=== PATIENT | male | born 1965 | race Caucasian/White ===

== ENCOUNTER 2017-03-31 06:06 | Day surgery (SDC) | payer OTHER ==
[2017-03-31] VITALS (13 sets, daily range): BP systolic 91–143; BP diastolic 52–88; PULSE 60–70; RESP 14–20
[~2017-03-31] VITALS: Ht 165.1 cm; Wt 90.9 kg
[2017-03-31] MEDS ORDERED: FURO40TA4 PO (06:30)
[2017-03-31] MEDS ORDERED: NIFE30TA60 PO (06:30)
[2017-03-31] MEDS ORDERED: METF850T PO (06:30)
[2017-03-31] MEDS ORDERED: LOSA1TAB20 PO (06:30)
[2017-03-31] MEDS ORDERED: PENT400T2 PO (06:30)
[2017-03-31] MEDS ORDERED: NOVO3I SC (06:30)
[2017-03-31] MEDS ORDERED: GABA300C16 PO (06:30)
[2017-03-31] MEDS ORDERED: INSU100I33 SC (06:30)
[2017-03-31] MEDS ORDERED: TRAM50TA2 PO (06:30)
[2017-03-31] MEDS ORDERED: POLYMYXIN/BACITRACIN 1L IRRIG ONE (06:56)
[2017-03-31] MEDS ORDERED: MEPERIDINE 100 MG INJ ONE (07:42)
[2017-03-31] MEDS ORDERED: PROPOFOL 20 ML ONE (07:42)
[2017-03-31] MEDS ORDERED: LIDOCAINE 2% (SDV) 5 ML INJ ONE (07:42)
[2017-03-31] MEDS ORDERED: FENTAnyl 50 MCG/ML VIAL IV PRN ×3 (08:00)
[2017-03-31] MEDS ORDERED: ONDANSETRON 4 MG INJ IV PRN (08:00)
[2017-03-31] MEDS ORDERED: HYDROmorphONE (0.2 MG/ML) 10ML SYG IV PRN ×3 (08:00)
[2017-03-31] MEDS ORDERED: MEPERIDINE 25 MG INJ IV PRN (08:00)
[2017-03-31] MEDS ORDERED: DIPHENHYDRAMINE 50 MG INJ IV PRN (08:00)
[2017-03-31] MEDS ORDERED: LABETALOL HCL 20MG INJ IV PRN (08:00)
[2017-03-31] MEDS ORDERED: OXYCODONE/ACETAMINOPHEN (5/325) TAB PO PRN ×2 (08:00)
[2017-03-31] MEDS ORDERED: hydrALAzine 20 MG INJ IV PRN (08:00)
[2017-03-31] MEDS ORDERED: MIDAZOLAM 1 MG/ML 2 ML INJ IV PRN (08:00)
[2017-03-31] MEDS ORDERED: EPHEDrine SULFATE 50 MG/5 ML SYG IV PRN (08:00)
[2017-03-31] MEDS ORDERED: METOCLOPRAMIDE 10 MG INJ IV PRN (08:00)
[2017-03-31] MEDS ORDERED: BUPIVACAINE 0.5% (SDV) 30 ML INJ ONE (08:14)
--- NOTE | 2017-03-31 08:15 | HPN ---
Date/Time of Note Date/Time of Note DATE: 03/31/17 TIME: 08:13 Interval H&P Admission Note Pt. seen H&P reviewed: No system changes LUIS ARMANDO LIVINGSTON DPM Mar 31, 2017 08:15
[2017-03-31] MEDS ORDERED: CEFAZOLIN 1 GM INJ ONE (08:51)
--- NOTE | 2017-03-31 09:49 | OPPN ---
Date/Time of Note Date/Time of Note DATE: 03/31/17 TIME: 09:47 Operative Report Preoperative Diagnosis Open chronic wound of the left ankle Charcot left ankle Diabetes mellitus with peripheral neuropathy Morbid obesity Postoperative Diagnosis Open chronic wound of the left ankle Charcot left ankle Diabetes mellitus with peripheral neuropathy Morbid obesity Operation/Procedure Performed Surgical debridement of chronic open wound of the left ankle Bone culture x 3 left ankle Surgeon see signature line histology assistant none Anesthesia: general Estimated blood loss: minimal Transfusion Required none Specimen Bone culture x 3 and bone specimen from the left ankle Grafts/Implants none Complications none LUIS ARMANDO LIVINGSTON DPM Mar 31, 2017 09:49
--- NOTE | 2017-03-31 09:49 | OPPN ---
Date/Time of Note Date/Time of Note DATE: 03/31/17 TIME: 09:47 Operative Report Preoperative Diagnosis Open chronic wound of the left ankle Charcot left ankle Diabetes mellitus with peripheral neuropathy Morbid obesity Postoperative Diagnosis Open chronic wound of the left ankle Charcot left ankle Diabetes mellitus with peripheral neuropathy Morbid obesity Operation/Procedure Performed Surgical debridement of chronic open wound of the left ankle Bone culture x 3 left ankle Surgeon see signature line physician assistant surgery none Anesthesia: general Estimated blood loss: minimal Transfusion Required none Specimen Bone culture x 3 and bone specimen from the left ankle Grafts/Implants none Complications none LUIS ARMANDO LIVINGSTON DPM Mar 31, 2017 09:49
--- NOTE | 2017-03-31 09:49 | OPPN ---
Date/Time of Note Date/Time of Note DATE: 03/31/17 TIME: 09:47 Operative Report Preoperative Diagnosis Open chronic wound of the left ankle Charcot left ankle Diabetes mellitus with peripheral neuropathy Morbid obesity Postoperative Diagnosis Open chronic wound of the left ankle Charcot left ankle Diabetes mellitus with peripheral neuropathy Morbid obesity Operation/Procedure Performed Surgical debridement of chronic open wound of the left ankle Bone culture x 3 left ankle Surgeon see signature line fitness assistant none Anesthesia: general Estimated blood loss: minimal Transfusion Required none Specimen Bone culture x 3 and bone specimen from the left ankle Grafts/Implants none Complications none LUIS ARMANDO LIVINGSTON DPM Mar 31, 2017 09:49
--- NOTE | 2017-03-31 09:59 | OPR ---
Date/Time of Note Date/Time of Note DATE: 03/31/17 TIME: 09:52 Operative Report Procedure Date: Mar 31, 2017 Preoperative Diagnosis Chronic open wound of the left ankle Chronic Charcot left ankle Diabetes mellitus with peripheral neuropathy Morbid obesity Postoperative Diagnosis Chronic open wound of the left ankle Chronic Charcot left ankle Diabetes mellitus with peripheral neuropathy Morbid obesity Operation/Procedure Performed Excisional sharp debridement of open wound of the left ankle measuring 4 x 4 centimeters using sharp instrumentation to bone Bone biopsy of the left distal fibula Bone biopsy of the left talus Bone biopsy of the left calcaneus Surgeon see signature line Certified Medication Aide None Anesthesia Type: general Estimated Blood Loss: minimal Transfusion none Specimen Necrotic bone from the left ankle Bone biopsy 3 from the left ankle Grafts/Implants none Tubes/Drains None Complications none Pt Condition Post Procedure: stable Disposition: PACU Indications This is a 52-year-old male who has been suffering with chronic open wound of the left ankle and complete subluxation of the ankle joint along with Charcot deformity for the past 1 year. Risks and complications discussed included, but are not limited to, postoperative infection, postoperative pain, hardware failure, failure of surgery to correct the problem, need for additional surgical procedures, deep venous thrombosis, limb loss and loss of life. Patient understands the discussion and agrees to the procedure. An informed consent was signed, obtained and placed in the chart. No guarantees or warrantees was given or implied as to the outcome of the procedure, either and verbal or written form. Procedure Description The patient was seen in the preoperative area. The proposed surgery was discussed with patient in great detail. Risks and complications of this type of surgery was discussed with patient in great detail. Opportunity was given to patient to ask questions and all questions were answered. The patient acknowledges understanding of the discussion. An informed consent was then obtained, signed and placed in the chart. Patient was taken to the operating room and was placed on the operating table in the supine position. All bony prominences were padded properly. A timeout was called by the circulating nurse. Everyone in the operating room was agreeable to the timeout. The patient was then placed under general anesthesia by the anesthesiologist. The left lower extremity was scrubbed, prepped and draped in usual aseptic manner. Attention was directed to the open wound on the lateral aspect of the left ankle. Sharp debridement to bone was done using a curette, #10 blade, pickups and a rongeur. Next, a Jamshidi needle was utilized to take bone samples from the distal fibula, talus and calcaneus. Each 1 of these bone samples were then placed in a separate culture to and will be sent to pathology. The wound was flushed with copious amounts of sterile normal saline and bacitracin. The wound was covered with sterile dressings. The patient tolerated procedure and anesthesia well. He was transferred to the recovery room with vital signs stable and vascular status intact to the left lower extremity. Postoperative orders are written. Patient will be discharged home after postoperative monitoring and when stable. Patient may continue weightbearing to tolerance with his air walker. Patient will most likely require further surgical management pending negative cultures. LUIS ARMANDO LIVINGSTON DPM Mar 31, 2017 09:59
== END 2017-03-31 10:45 | disposition home or self-care (01) ==
LOC: SUR 06:06 → SDS 06:06 → SUR 10:45
PROVIDERS: ATTEND Podiatrist Foot & Ankle Surgery
DX: L97.324 Non-pressure chronic ulcer of left ankle with necrosis of bone (principal); M87.9 Osteonecrosis, unspecified; E11.610 Type 2 diabetes mellitus with diabetic neuropathic arthropathy; E11.42 Type 2 diabetes mellitus with diabetic polyneuropathy; E66.01 Morbid (severe) obesity due to excess calories; Z68.33 Body mass index [BMI] 33.0-33.9, adult; E11.9 Type 2 diabetes mellitus without complications; I10 Essential (primary) hypertension; E66.9 Obesity, unspecified
CPT/HCPCS: 11044; 20240; 82962; 87070; 87075; 87102; 87116; 88304; 88311; J0690; J2175; Z7512; Z7610

== ENCOUNTER 2017-05-09 10:38 | Day surgery (SDC) | payer OTHER ==
[2017-05-09] VITALS (13 sets, daily range): BP systolic 121–142; BP diastolic 74–80; PULSE 64–70; RESP 15–18; Ht 165.1 cm; Wt 97.3 kg
[~2017-05-09] VITALS: Ht 165.1 cm; Wt 97.3 kg
[~2017-05-09 10:38] MED LIST: FURO40TA4 PO; GABA300C16 PO; INSU100I33 SC; LOSA1TAB20 PO; METF850T PO; NIFE30TA60 PO; NOVO3I SC; PENT400T2 PO; TRAM50TA2 PO
[2017-05-09] MEDS ORDERED: ASPI-664 PO (11:07)
[2017-05-09] MEDS ORDERED: NIFE90TA21 PO (11:08)
[2017-05-09] MEDS ORDERED: ATOR20TA38 PO (11:08)
[2017-05-09] MEDS ORDERED: CARV12.579 PO (11:08)
[2017-05-09] MEDS ORDERED: LOSA1TAB21 PO (11:09)
[2017-05-09 11:41] LABS: BASOPHIL # 0.1 10^3/ul (0.0-0.1); BASOPHILS % 0.6 % (0.0-2.0); EOSINOPHILS # 0.2 10^3/ul (0.0-0.5); EOSINOPHILS % 1.9 % (0.0-7.0); HEMATOCRIT 32.4 % (42.0-52.0); HEMOGLOBIN 11.1 g/dl (14.0-18.0); LYMPHOCYTES # 2.8 10^3/ul (0.8-2.9); LYMPHOCYTES % 31.3 % (15.0-51.0); MEAN CORPUSCULAR HEMOGLOBIN 30.1 pg (29.0-33.0); MEAN CORPUSCULAR HGB CONC 34.3 g/dl (32.0-37.0); MEAN CORPUSCULAR VOLUME 87.8 fl (82.0-101.0); MEAN PLATELET VOLUME 10.8 fl (7.4-10.4); MONOCYTE # 0.8 10^3/ul (0.3-0.9); MONOCYTES % 8.5 % (0.0-11.0); NEUTROPHIL # 5.2 10^3/ul (1.6-7.5); NEUTROPHILS % 57.6 % (39.0-77.0); PLATELET COUNT 365 10^3/UL (140-415); RED BLOOD COUNT 3.69 10^6/ul (4.70-6.10); RED CELL DISTRIBUTION WIDTH 15.9 % (11.5-14.5)
[2017-05-09 12:16] LABS: INR 0.94; PROTIME 12.6 Sec (12.2-14.2)
[2017-05-09 12:24] LABS: ALBUMIN 3.9 g/dl (3.3-4.9); ALBUMIN/GLOBULIN RATIO 0.95; BILIRUBIN,INDIRECT 0.2 mg/dl (0-1.1); BILIRUBIN,TOTAL 0.2 mg/dl (0.2-1.3)
[2017-05-09 12:28] LABS: CALCIUM 9.1 mg/dl (8.4-10.2); CREATININE 1.28 mg/dl (0.61-1.24); POTASSIUM 4.2 mmol/L (3.5-5.1)
[2017-05-09] MEDS ORDERED: SOD CHLORIDE 0.9% 1,000 ML IV SCH (13:33)
--- NOTE | 2017-05-09 13:33 | SIPON ---
Date/Time of Note Date/Time of Note DATE: 05/09/17 TIME: 13:31 Operative Report Preoperative Diagnosis Extensive left ankle wound Postoperative Diagnosis Same Operation/Procedure Performed Aortogram, bilateral lower extremity angiogram, angioplasty left proximal PT stenosis Surgeon see signature line store administrative assistant N/A Anesthesia: moderate sedation Estimated blood loss: minimal Transfusion Required none Specimen none Grafts/Implants none Complications none BETZY LINDO MD May 09, 2017 13:33
[2017-05-09] MEDS ORDERED: ACETAMINOPHEN 325 MG TAB PO PRN (14:00)
[2017-05-09] MEDS ORDERED: ONDANSETRON 4 MG INJ IV PRN (14:00)
--- NOTE | 2017-05-09 15:28 | OPR ---
DATE OF OPERATION: 05/09/2017 PREOPERATIVE DIAGNOSIS: Peripheral vascular disease, severe left ankle open wound with Charcot deformity. POSTOPERATIVE DIAGNOSIS: Peripheral vascular disease, severe left ankle open wound with Charcot deformity. PROCEDURE: 1. Aortogram. 2. Bilateral lower extremity angiogram. 3. Angioplasty of left proximal posterior tibial artery stenosis. SURGEON: Betzy Romo MD ANESTHESIA: Moderate sedation and local. ESTIMATED BLOOD LOSS: Minimal. COMPLICATIONS: None. SPECIMENS: None. PREOPERATIVE INDICATIONS: This is a 52-year-old gentleman with diabetes and hypertension who presents with severe open left ankle lateral wound. He also has Charcot joint deformity along with instability of the joint. His wound has been healing with localized would care. However, he is preoperative for left ankle fusion. He now presents for further examination of his vasculature given preprocedure imaging demonstrated possible significant disease. The indications , risks and benefits of the procedure were discussed with the patient and his family, who understood and agreed to proceed. DESCRIPTION OF PROCEDURE: After the patient was properly identified, he was brought to the angiography suite and placed in a supine position. The patient' s bilateral groins were prepped and draped in the usual sterile fashion. The patient was induced with moderate sedation as needed throughout the course of the procedure. Ultrasound was used to evaluate the right common femoral artery. It was noted to be patent, mildly calcified. Local anesthesia was injected in the skin and subcutaneous tissue overlying the common femoral access site. Ultrasound was used to guide micropuncture needle access into the common femoral artery. A micropuncture wire was then advanced under fluoroscopy. A micropuncture sheath was then placed. An 0.035 wire was then advanced into the iliac system and a short 5-Jordanian sheath was placed. Using an 0.035 Bentson wire and the flush catheter, catheter was advanced into the infrarenal aorta, infrarenal aortogram was then performed. This demonstrated that the infrarenal aorta was markedly patent without any aneurysmal degeneration or flow limiting lesions. The common iliac, internal iliac and external iliac arteries bilaterally were patent. Using a combination of the Bentson wire and the flush catheter, the left external iliac artery was selected. Left lower extremity angiogram was then performed. This demonstrated that the left common femoral, superficial femoral, profunda femoral , popliteal arteries were all patent. The left anterior tibial artery was completely occluded shortly after its origin without any reconstitution all the way to the foot. The tibioperoneal trunk is patent and mildly diseased and gives off a patent peroneal artery that flows to the ankle giving off collaterals branches. The posterior tibial artery is overall patent and is the dominant flow to the foot via the plantar artery. However, there was a significant stenosis approximately 70-80%% at the proximal aspect of the posterior tibial artery at the origin. It was a short lesion. Given this and the fact that the patient needs reconstruction of his left ankle, intervention was planned. Therefore, a floppy 0.035 Glidewire was then advanced into the catheter and the flush catheter was exchanged for an angled glide catheter, which was then placed into the superficial femoral artery. An 0.035 Advantage wire was then placed. The catheter and sheath were then removed and a 6-Jordanian x 65 cm Destination sheath was then placed, 9000 units of intravenous heparin was then administered. The floppy Glidewire along with the guide catheter was then used to select the posterior tibial artery. The guide catheter was then exchanged for an 0.035 Cazenovia catheter for further length. The wire and catheter were used to cross the proximal posterior tibial artery lesion. Angiogram confirmed the presence of the catheter in the true lumen of the distal posterior tibial artery. A 0.014 wire was then advanced and the catheter was exchanged for a 3 mm x 20 mm balloon. This balloon was chosen given measurements at the vessel on angiography that demonstrated a vessel diameter of about 1.6 mm at the stenotic area. The stenosis was then localized and the balloon was advanced to this area. It was used for angioplasty, after which there was marked improvement in flow and diameter on angiography. There were no complications noted on angiogram. Given these findings, the device was removed along with the wire. A 0.035 wire was then readvanced and the sheath was retracted back into the right iliac system and the wire was placed in the infrarenal aorta. Angiogram of the right lower extremity was then performed. This demonstrated the right common femoral and proximal superficial femoral and profunda femoral arteries were widely patent without any flow limiting lesions. The access site was in the common femoral artery and was amenable to a closure device. Thus, the sheath was removed and a 6-Jordanian Angio-Seal closure device was then advanced and used for closure. After deployment, there was good hemostasis. Manual compression was applied for additional hemostasis. The patient tolerated the procedure well without any immediate complications. He was transferred to recovery in good condition. Dictated By: BETZY MCDOWELL/ANGELIA Conf#: [id number] DID#: [id number] MTDD
== END 2017-05-09 17:46 | disposition home or self-care (01) ==
LOC: SDS 10:38
PROVIDERS: ATTEND Surgery
DX: I73.9 Peripheral vascular disease, unspecified (principal); M14.671 Charcot's joint, right ankle and foot; I10 Essential (primary) hypertension; E11.9 Type 2 diabetes mellitus without complications
CPT/HCPCS: 75630; 80053; 82962; 85025; 85610; 85730; C1725; C1760; C1769; C1887; C1894; Z7610

== ENCOUNTER 2017-05-28 06:02 | Day surgery (SDC) | payer OTHER ==
[~2017-05-28] VITALS: Ht 165.1 cm; Wt 95.5 kg
[2017-05-28] VITALS (18 sets, daily range): BP systolic 85–117; BP diastolic 48–71; PULSE 56–61; RESP 11–22; Ht 165.1 cm; Wt 95.5 kg
[~2017-05-28 06:02] MED LIST changes: +ASPI-664 PO; +ATOR20TA38 PO; +CARV12.579 PO; -LOSA1TAB20 PO; +LOSA1TAB28 PO; -METF850T PO; -NIFE30TA60 PO; +NIFE90TA21 PO; -TRAM50TA2 PO
[2017-05-28] MEDS ORDERED: PROPOFOL 20 ML ONE (07:59)
[2017-05-28] MEDS ORDERED: CEFAZOLIN 1 GM INJ ONE (07:59)
[2017-05-28] MEDS ORDERED: ONDANSETRON 4 MG INJ ONE (08:00)
[2017-05-28] MEDS ORDERED: METOCLOPRAMIDE 10 MG INJ ONE (08:00)
[2017-05-28] MEDS ORDERED: ROPIVACAINE 0.2% 20 ML VIAL ONE (08:00)
[2017-05-28] MEDS ORDERED: MIDAZOLAM 1 MG/ML 2 ML INJ ONE (08:00)
[2017-05-28] MEDS ORDERED: FENTAnyl 50 MCG/ML VIAL ONE (08:00)
[2017-05-28] MEDS ORDERED: ROPIVACAINE 0.5 % 30 ML VIAL ONE (08:00)
--- NOTE | 2017-05-28 08:01 | HPN ---
Date/Time of Note Date/Time of Note DATE: 05/28/17 TIME: 08:01 Interval H&P Admission Note Pt. seen H&P reviewed: No system changes LUIS ARMANDO LIVINGSTON DPM May 28, 2017 08:01
[2017-05-28] MEDS ORDERED: HYDROmorphONE (0.2 MG/ML) 10ML SYG IV PRN ×3 (09:00)
[2017-05-28] MEDS ORDERED: MEPERIDINE 25 MG INJ IV PRN (09:00)
[2017-05-28] MEDS ORDERED: ONDANSETRON 4 MG INJ IV PRN (09:00)
[2017-05-28] MEDS ORDERED: OXYCODONE/ACETAMINOPHEN (5/325) TAB PO PRN ×2 (09:00)
[2017-05-28] MEDS ORDERED: DIPHENHYDRAMINE 50 MG INJ IV PRN (09:00)
[2017-05-28] MEDS ORDERED: POLYMYXIN/BACITRACIN 1L IRRIG ONE (09:23)
[2017-05-28] MEDS ORDERED: HYDROmorphONE 2 MG/ML SYG ONE (09:50)
--- NOTE | 2017-05-28 11:15 | OPR ---
Date/Time of Note Date/Time of Note DATE: 05/28/17 TIME: 11:03 Operative Report Procedure Date: May 28, 2017 Preoperative Diagnosis Severe left Charcot deformity of the ankle Chronic open wound left ankle Charcot left foot Diabetes with polyneuropathy Peripheral vascular disease Postoperative Diagnosis Severe left Charcot deformity of the ankle Chronic open wound left ankle Charcot left foot Diabetes with polyneuropathy Peripheral vascular disease Operation/Procedure Performed Left ankle fusion using intramedullary shanna fixation Application of allograft bone graft Intraoperative use and interpretation of fluoroscopy Application of posterior splint left lower extremity Surgeon see signature line Inspector Eyeglass Frames None Anesthesia Type: general Estimated Blood Loss: 10 - 50 ml's Transfusion none Specimen Bone debridement from the left ankle Grafts/Implants none Complications none Pt Condition Post Procedure: stable Disposition: PACU Indications This is a pleasant 52-year-old male patient who has been suffering with severe Charcot of the left ankle and left foot and chronic open wound of the left ankle. Patient was evaluated and was found to have complete dislocation and instability of the left ankle and destruction of the talus. Recommended procedure: Left ankle fusion using intramedullary shanna fixation with use of bone graft. Patient seeks surgical management. Risks and complications of this type of surgery was discussed with patient in great detail. Risks and complications discussed included, but are not limited to, postoperative infection, postoperative pain, hardware failure, malunion, nonunion, delayed union, failure of surgery to correct the problem, need for additional surgical procedures, deep venous thrombosis, limb loss and loss of life. Patient understands the discussion and agrees to the procedure. An informed consent was signed, obtained and placed in the chart. No guarantees or warrantees was given or implied as to the outcome of the procedure either in verbal or written form. Procedure Description The patient was seen in the preoperative area. The proposed surgery was discussed with patient in great detail. Risks and complications of this type of surgery was discussed with patient in great detail. Opportunity was given to patient to ask questions and all questions were answered. The patient acknowledges understanding of the discussion. An informed consent was then obtained, signed and placed in the chart. Patient was taken to the operating room and was placed on the operating table in the supine position. All bony prominences were padded properly. A timeout was called by the circulating nurse. Everyone in the operating room was agreeable to the timeout. The patient was then placed under general anesthesia by the anesthesiologist. A thigh tourniquet was applied to the left thigh. The left lower extremity was scrubbed, prepped and draped in usual aseptic manner. An Esmarch bandage was utilized to exsanguinate the left lower extremity and the tourniquet was inflated to 300 mmHg pressure. Attention was directed to the left ankle. C-arm was used to evaluate the joint position. It was noted that the talus body was completely missing with erosion of the distal tibia and fibula and part of the calcaneus. Lateral incision was made along the fibula using a #10 blade approximately 13 cm. Bleeders were cauterized as necessary. Dissection was deepened to the periosteal layer with care being taken to identify and protect vital neurovascular structures. The fibula was exposed and was found to have degenerative changes at the distal aspect. This was debrided using a rongeur. The ankle joint was then exposed and there was no talus present. I proceeded to prepare the joint surfaces and I removed all cartilaginous surface from the distal tibia and the calcaneus. Drill holes were made with a 2.0 drill in both the distal tibia and surface of the calcaneus. The area was flushed with copious muscle sterile normal saline. I debrided significant amount of soft tissue that was present with fibrotic tissue in the fusion site. Using C arm, the foot and ankle was placed in neutral position and there was a void of bone visible. Allograft bone graft from [employer] along with DBM and Augment was prepped for use as structural graft. Once the joint surfaces were prepped, using intraoperative fluoroscopy, guidewire was placed from the plantar aspect of the foot through the calcaneus into the distal tibia. The position was checked and was found to be in neutral position. Next, drill hole was made from the plantar aspect of the calcaneus into the distal tibia. I reamed the tibia to size 12. A 150 mm nail was selected and inserted through the calcaneus into the distal tibia. The fusion site was distracted temporarily in order to insert the structural bone graft. Bone graft was inserted and the DBM was packed around. Next, C-arm was used for insertion of proximal screws into the nail. The guide for the nail was positioned medially. A small incision was made at the position of insertion of screws. The proximal screw holes were drilled under fluoroscopy and 2 screws were inserted. Next, the distal screws were inserted using the guide in a systematic fashion with small incisions made for insertion of the screws using a #10 blade. A cap was placed at the end of the nail. Intraoperative fluoroscopic pictures were obtained. All wounds were then flushed with copious amounts of sterile normal saline. The lateral ulcer was excised using a #10 blade. The periosteal layer and the subcutaneous layers were closed using 2-0 Vicryl suture and the skin was closed using combination of andreia and 0 Prolene. The remaining small stab incisions were closed using andreia. Sterile dressing was applied. The thigh tourniquet was deflated at this time and prompt hyperemic response was noted to digits of the left foot. A posterior splint was applied to the left lower extremity. The patient tolerated procedure and anesthesia well. He was transferred to the recovery room with vital signs stable and vascular status intact to left lower extremity. The patient will be discharged home after postoperative monitoring. Postoperative orders were written. Patient will be followed up in the office in 1 week. LUIS ARMANDO LIVINGSTON DPM May 28, 2017 11:15
--- NOTE | 2017-05-29 09:41 | RADRPT ---
PROCEDURE: Fluoroscopy CLINICAL INDICATION: ORIF left ankle TECHNIQUE: 53 seconds fluoroscopic time utilized by Dr. Adair for procedure. 7 images/sequences of are submitted. COMPARISON: None FINDINGS: Placement of fixation hardware across the mortise joint and hind foot is demonstrated. IMPRESSION: Fluoroscopy utilized by Dr. Adair for procedure Please see procedural report for complete details. RPTAT: QQ .Lonnie Joshi MD, MD Date Time Electronically viewed and signed by .Lonnie Joshi MD, on 05/29/2017 09:41 .L/
--- NOTE | 2017-05-29 09:43 | RADRPT ---
PROCEDURE: XR Ankle. CLINICAL INDICATION: Left ankle pain. Postop. Follow-up. TECHNIQUE: Three views of the left ankle were performed. COMPARISON: Left ankle x-ray 02/18/2017 FINDINGS: Postsurgical changes of the left ankle is seen. Surgical shanna is seen traversing the calcaneus and di stal tibia. Threaded screws are seen traversing the calcaneus. Overlapping skin andreia are identifi ed. Collapse of the talar bone is seen. Chronic disorganization of the osseous structures is noted. Deformity consistent with Charcot's foot. IMPRESSION: 1. Chronic deformity of the left foot consistent with known Charcot's foot. 2. Postsurgical changes in appropriate alignment, status post arthrodesis of the left ankle. 3. Overlying skin andreia in place, as expected. RPTAT: HMJB .Tyler Alfred MD, Date Time Electronically viewed and signed by .Tyler Alfred MD, on 05/29/2017 09:43 .B/
== END 2017-05-28 12:40 | disposition home or self-care (01) ==
LOC: SDS 06:02
PROVIDERS: ATTEND Podiatrist Foot & Ankle Surgery
DX: L97.321 Non-pressure chronic ulcer of left ankle limited to breakdown of skin (principal); A52.16 Charcot's arthropathy (tabetic); E11.42 Type 2 diabetes mellitus with diabetic polyneuropathy; I73.9 Peripheral vascular disease, unspecified; I10 Essential (primary) hypertension; E66.9 Obesity, unspecified; Z68.35 Body mass index [BMI] 35.0-35.9, adult
CPT/HCPCS: 27870; 73610; 82962; 88304; C1713; J0690; J1170; J2250; J2405; J2765; J2795; J3010; Z7512; Z7610

== ENCOUNTER → 2018-02-22 | Outpatient (CLI) | END | disposition home or self-care (01) ==

== ENCOUNTER 2018-03-08 10:20 | Day surgery (SDC) | END 2018-03-08 14:44 | disposition home or self-care (01) ==